=== PATIENT | female | born 1980 | race African-American/Black ===

== ENCOUNTER 2020-05-02 20:01 | Emergency (ER) | payer BC ==
[~2020-05-02] VITALS: Ht 172.7 cm; Wt 108.9 kg
[2020-05-02] MEDS ORDERED: SODIUM CHLORIDE 0.9% 1000ML 1,000 ML IV STA (20:19)
[2020-05-02] MEDS ORDERED: CEFTRIAXONE SOD 1 GM VIAL IV ONE (20:30)
[2020-05-02] MEDS ORDERED: CEFTRIAXONE SOD 1 GM VIAL ONE (20:42)
[2020-05-02] MEDS ORDERED: SODIUM CHLORIDE 0.9% 1000ML 1,000 ML ONE (20:42)
[2020-05-02] MEDS ORDERED: CEFDINIR300 MG PO (21:39)
== END 2020-05-02 21:52 | disposition home or self-care (01) ==
LOC: FSED 20:20
DX: R50.9 Fever, unspecified (principal); N30.00 Acute cystitis without hematuria; M54.5 Low back pain
CPT/HCPCS: 80053; 81003; 85025; 99283; J0696; J7030